=== PATIENT | female | born 1950 | race American Indian/Alaskan Native ===

== ENCOUNTER → 2016-05-19 | Outpatient (CLI) | payer MEDICARE, BC | LOC: MW.CHGS 08:00 | PROVIDERS: ATTEND Surgery | DX: K57.30 Diverticulosis of large intestine without perforation or abscess without bleeding (principal); Z86.010 Personal history of colon polyps; Z12.11 Encounter for screening for malignant neoplasm of colon; Z12.12 Encounter for screening for malignant neoplasm of rectum | CPT/HCPCS: 99204 ==

== ENCOUNTER 2016-06-05 09:45 | Day surgery (SDC) | payer MEDICARE, BC ==
[~2016-06-05 09:45] MED LIST: Lactated Ringers 1,000 ML IV SCH; Midazolam 1 MG/ML 2 ML SDV ONE; Propofol 200 MG/20 ML SDV ONE; fentaNYL 100 MCG/2 ML SDV ONE
--- NOTE | 2016-06-05 10:24 | PCM.PREANE ---
Preanesthetic Assessment - Anesthesia/Transfusion/Family Hx Anesthesia History: Prior Anesthesia Without Reaction Transfusion History: No Prior Transfusion(s) - Review of Systems General: No Symptoms Pulmonary: No Symptoms Cardiovascular: No Symptoms Gastrointestinal: No symptoms Neurological: No Symptoms Other: Reports: None - Physical Assessment NPO Status Date: 06/04/16 O2 Sat by Pulse Oximetry: 97 Respiratory Rate: 16 Vital Signs: Last Vital Signs Temp 36.6 C 06/05/16 09:05 Pulse 91 06/05/16 09:05 Resp 16 06/05/16 09:05 BP 117/40 L 06/05/16 09:05 Pulse Ox 97 06/05/16 09:05 Height: 1.68 m Weight: 79.832 kg ASA Class: 1 Mental Status: Alert & Oriented x3 Airway Class: Mallampati = 2 Dentition: Reports: Normal Dentition ROM/Head Extension: Full Lungs: Clear to auscultation, Normal respiratory effort Cardiovascular: Regular Rate, Regular Rhythm - Allergies Allergies/Adverse Reactions: Allergies Allergy/AdvReac Type Severity Reaction Status Date / Time Cephalosporins Allergy Cannot Verified 06/02/16 08:41 Remember gluten Allergy weakness/he Verified 06/02/16 08:41 adache morphine Allergy Hyperactivi Verified 06/02/16 08:41 ty Sulfa (Sulfonamide Allergy Rash Verified 06/02/16 08:41 Antibiotics) scents Allergy Shortness Uncoded 06/02/16 08:41 of Breath - Anesthesia Plan Pre-Op Medication Ordered: None - Acknowledgements Anesthesia Type Planned: MAC Pt an Appropriate Candidate for the Planned Anesthesia: Yes Alternatives and Risks of Anesthesia Discussed w Pt/Guardian: Yes Pt/Guardian Understands and Agrees with Anesthesia Plan: Yes PreAnesthesia Questionnaire HEENT History: Reports: Allergic rhinitis Gastrointestinal History: Reports: Colon polyp, Diverticulosis Genitourinary History: Reports: 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: Musculoskeletal History: Reports: Arthritis, Back pain, chronic Other Musculoskeletal History: chronic rt knee pain - Past Surgical History Head Surgeries/Procedures: Reports: None GI Surgical History: Reports: Colon, Colonoscopy, Colostomy, Other (see below) Other GI Surgeries/Procedures: hx colonoscopy with polyp removal, colostomy for ruptured diverticulitis, and colostomy closure Female Surgical History: Reports: Breast biopsy, Cervical cryotherapy, Dilitation & evacuation, Hysterectomy, Salpingo-oophorectomy Other Female Surgeries/Procedures: hx D&C, laser ablation of cervix, total abd hysterectomy, and breast bx - SUBSTANCE USE Smoking Status *Q: Never Smoker Recreational Drug Use History: No - HOME MEDS Home Medications: Home Meds Biest/Progesterone 2 mg SL DAILY 06/02/16 [History] Cetirizine HCl [Allergy] 10 mg PO DAILY PRN 06/02/16 [History] Fluticasone Propionate [Flonase Allergy Relief] 1 spray NASBOTH DAILY 06/02/16 [ History] Meloxicam 15 mg PO ASDIRECTED PRN 06/02/16 [History] Montelukast Sodium [Singulair] 10 mg PO DAILY 06/02/16 [History] Multivitamin [Multivitamins] 1 tab PO DAILY 06/02/16 [History] Polyethylene Glycol 3350 [MiraLAX] 1 dose PO ASDIRECTED PRN 06/02/16 [History] - CURRENT (IN HOUSE) MEDS Current Meds: Current Medications Lactated Ringer's (Ringers, Lactated) 1,000 mls @ 125 mls/hr IV ASDIRECTED PAULA Discontinued Medications Fentanyl (Sublimaze) Confirm Administered Dose 100 mcg .ROUTE .STK-MED ONE Stop: 06/05/16 07:28 Midazolam HCl (Versed 1 Mg/Ml) Confirm Administered Dose 2 mg .ROUTE .STK-MED ONE Stop: 06/05/16 07:27 Propofol (Diprivan 20 Ml) Confirm Administered Dose 200 mg .ROUTE .STK-MED ONE Stop: 06/05/16 07:27 Preanesthetic Assessment - ANESTHESIA/TRANSFUSION/FAMILY HX Family History of Anesthesia Reaction: No - PHYSICAL ASSESSMENT O2 Sat by Pulse Oximetry: 97 RR: 16 Vital Signs: Last Vital Signs Temp 36.6 C 06/05/16 09:05 Pulse 91 06/05/16 09:05 Resp 16 06/05/16 09:05 BP 117/40 L 06/05/16 09:05 Pulse Ox 97 06/05/16 09:05 Height: 1.68 m Weight: 79.832 kg - ALLERGIES Allergies/Adverse Reactions: Allergies Allergy/AdvReac Type Severity Reaction Status Date / Time Cephalosporins Allergy Cannot Verified 06/02/16 08:41 Remember gluten Allergy weakness/he Verified 06/02/16 08:41 adache morphine Allergy Hyperactivi Verified 06/02/16 08:41 ty Sulfa (Sulfonamide Allergy Rash Verified 06/02/16 08:41 Antibiotics) scents Allergy Shortness Uncoded 06/02/16 08:41 of Breath
[2016-06-05] MEDS ORDERED: Lactated Ringers 1,000 ML IV SCH (11:30)
--- NOTE | 2016-06-05 11:31 | PCM.OPNOTE ---
- General Post-Op/Procedure Note Date of Surgery/Procedure: 06/05/16 Operative Procedure(s): Colonoscopy Pre Op Diagnosis: Personal history of colon polyps. History of ruptured diverticulitis, status post resection. Post-Op Diagnosis: Pancolonic diverticulosis Anesthesia Technique: MAC (ASA II) Primary Surgeon: Ge Vyas Condition: Good Free Text/Narrative:: Dictation [id number]
[2016-06-05 11:50] VITALS: BP 128/81
--- NOTE | 2016-06-05 12:16 | PCM48HPAN ---
Post Anesthesia Note - EVALUATION WITHIN 48HRS OF ANESTHETIC Vital Signs in Normal Range: Yes Patient Participated in Evaluation: Yes Respiratory Function Stable: Yes Airway Patent: Yes Cardiovascular Function Stable: Yes Hydration Status Stable: Yes Pain Control Satisfactory: Yes Nausea and Vomiting Control Satisfactory: Yes Mental Status Recovered: Yes
--- NOTE | 2016-06-05 12:16 | PCM.POSTAN ---
POST ANESTHESIA ASSESSMENT - MENTAL STATUS Mental Status: alert, oriented - RESPIRATORY Respiratory Status: respiratory rate WNL, airway patent - CARDIOVASCULAR CV Status: pulse rate WNL, blood pressure stable - GASTROINTESTINAL GI Status: no symptoms - POST OP HYDRATION Hydration Status: adequate & stable
--- NOTE | 2016-06-08 07:54 | OR ---
SURGEON: Ge Vyas M.D. DATE OF PROCEDURE: 06/05/2016 OPERATION PERFORMED: Colonoscopy. ANESTHESIA: MAC. ASA CLASSIFICATION: II. PREOPERATIVE DIAGNOSES: 1. Personal history of colon polyps. 2. History of ruptured diverticulitis status post resection. POSTOPERATIVE DIAGNOSIS: Pancolonic diverticulosis. DESCRIPTION OF PROCEDURE: The patient was taken to the endoscopy room and positioned on the endoscopy table in the left lateral decubitus position. Time-out was called for appropriate identification of the patient and procedure. Monitored anesthesia care was provided. The colonoscope was inserted into the rectum and advanced without difficulty to the cecum, where the colonoscope was retroflexed to visualize the ascending colon from below. The colonoscope was then straightened and slowly withdrawn. The cecum, ascending colon, hepatic flexure, transverse colon, splenic flexure, descending colon, sigmoid colon, and rectum were very well visualized. No tumors or polyps were seen. There was no evidence of inflammatory bowel disease. Pancolonic diverticulosis was noted. The colonoscope was then withdrawn to the rectum and retroflexed to visualize the anal orifice from above. No tumors, polyps, or acute hemorrhoidal changes were noted. The colonoscope was then straightened, the rectum aspirated, and the colonoscope was removed. The patient tolerated the procedure well and was taken to recovery room in stable condition. PAVEL DEVI /[id number]
== END 2016-06-05 12:25 | disposition home or self-care (01) ==
LOC: MW.SDS 09:45
PROVIDERS: ATTEND Surgery
PROC: 0DJD8ZZ Inspection of Lower Intestinal Tract, Via Natural or Artificial Opening Endoscopic (ICD-10-PCS; principal; 2016-06-05)
DX: Z12.11 Encounter for screening for malignant neoplasm of colon (principal); K57.30 Diverticulosis of large intestine without perforation or abscess without bleeding; Z86.010 Personal history of colon polyps; J30.9 Allergic rhinitis, unspecified
CPT/HCPCS: G0105; J2250; J3010; J7120; J2704

== ENCOUNTER → 2016-07-10 | Outpatient (CLI) | payer MEDICARE, BC | LOC: MW.CHFP 08:00 | PROVIDERS: ATTEND Physician Assistant | DX: M70.62 Trochanteric bursitis, left hip (principal) | CPT/HCPCS: G0463 ==

== ENCOUNTER → 2016-07-17 | Outpatient (CLI) | payer MEDICARE, BC ==
--- NOTE | 2016-07-17 20:26 | CR ---
EXAM DATE: 07/17/16 PATIENT'S AGE: 66 Patient: WILLY MEADOWS Facility: [place], [place] Site . Site : 1950 Study: XRay Hip Left [id number]/12/2017 10:25:17 AM Ordering Physician: To Arroyo Final Report: HISTORY: Trochanteric bursitis. Technique: Two views of the left hip. Comparison: No prior. Findings: No fracture or dislocation. No significant hip joint space narrowing. Mild degenerative changes of the pubic symphysis. No lytic or sclerotic bone lesion seen. Impression: 1. No fracture or dislocation. 2. No hip joint space narrowing. Dictated by Franko Espinal MD @ Jul 17 2016 12:37PM (Electronic Signature) Report Signed by Proxy. LAN
== END ==
LOC: MW.CHFP 08:49
PROVIDERS: ATTEND Physician Assistant
DX: M70.62 Trochanteric bursitis, left hip (principal)
CPT/HCPCS: 73502-26-LT; 73502-LT; G0463

== ENCOUNTER 2018-05-30 09:57 | Inpatient (IN) | payer MEDICARE, BC ==
[~2018-05-30 09:57] MED LIST changes: +Clindamycin Phosphate in D5W 600 MG in Premix Bag 1 BAG IV SCH; +Famotidine 20 MG/2 ML SDV IVPUSH SCH; +Ketorolac 15 MG/ML SDV IVPUSH SCH; -Lactated Ringers 1,000 ML IV SCH; -Propofol 200 MG/20 ML SDV ONE; +Ropivacaine 49.25 ML, Ketorolac 30 MG, EPINEPHrine 0.5 MG, cloNIDine 80 MCG in Sodium C... INJECT SCH; +Scopolamine 1.5 MG Transdermal Patch TRDERM SCH; +Tranexamic Acid 2,000 MG in Sodium Chloride 0.9% 100 ML IV SCH
[2018-05-30] MEDS ORDERED: EPINEPHrine 1 MG/ML SDV ONE (10:28)
[2018-05-30] MEDS: Lactated Ringers 1,000 ML IV SCH (10:40)
[2018-05-30] MEDS: Acetaminophen 1,000 MG in Premix Bag 1 BAG IV SCH ×5 (10:45→21:05)
--- NOTE | 2018-05-30 10:45 | PCM.PREANE ---
Preanesthetic Assessment - Anesthesia/Transfusion/Family Hx Anesthesia History: Prior Anesthesia Without Reaction Family History of Anesthesia Reaction: No Transfusion History: No Prior Transfusion(s) Intubation History: Unknown - Review of Systems General: No Symptoms Pulmonary: No Symptoms Cardiovascular: No Symptoms Gastrointestinal: No Symptoms Neurological: No Symptoms Other: Reports: None - Physical Assessment Height: 1.68 m Weight: 79.379 kg ASA Class: 2 Mental Status: Alert & Oriented x3 Airway Class: Mallampati = 2 Dentition: Reports: Normal Dentition Thyro-Mental Finger Breadths: 3 Mouth Opening Finger Breadths: 2 ROM/Head Extension: Full Lungs: Clear to Auscultation, Normal Respiratory Effort Cardiovascular: Regular Rate, Regular Rhythm - Allergies Allergies/Adverse Reactions: Allergies Allergy/AdvReac Type Severity Reaction Status Date / Time aspirin Allergy Nausea and Verified 05/26/18 17:06 Vomiting blueberry Allergy Nausea and Verified 05/26/18 17:06 Vomiting Cephalosporins Allergy Rash Verified 05/26/18 17:06 gluten Allergy Arrhythmias Verified 05/26/18 17:06 morphine Allergy Agitation Verified 05/26/18 17:06 soy Allergy Nausea and Verified 05/26/18 17:06 Vomiting Sulfa (Sulfonamide Allergy Rash Verified 05/26/18 17:06 Antibiotics) cantaloupe Allergy Nausea and Uncoded 05/26/18 17:06 Vomiting scents Allergy Shortness Uncoded 05/26/18 17:06 of Breath - Blood Blood Available: No - Anesthesia Plan Pre-Op Medication Ordered: None - Acknowledgements Anesthesia Type Planned: Spinal (general anesthesia back-up) Pt an Appropriate Candidate for the Planned Anesthesia: Yes Alternatives and Risks of Anesthesia Discussed w Pt/Guardian: Yes Pt/Guardian Understands and Agrees with Anesthesia Plan: Yes PreAnesthesia Questionnaire HEENT History: Reports: Allergic Rhinitis Cardiovascular History: Reports: High Cholesterol (mildly elevated - no medications) Gastrointestinal History: Reports: Colon Polyp, Diverticulosis Genitourinary History: Reports: 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: Musculoskeletal History: Reports: Back Pain, Chronic (now ok), Osteoarthritis Other Musculoskeletal History: chronic rt knee pain - Past Surgical History GI Surgical History: Reports: Colon, Colonoscopy, Colostomy, Other (See Below) Other GI Surgeries/Procedures: hx colonoscopy with polyp removal, colostomy for ruptured diverticulitis, and colostomy closure Female Surgical History: Reports: Breast Biopsy, Cervical Cryotherapy, Dilitation & Evacuation, Hysterectomy, Salpingo-Oophorectomy Other Female Surgeries/Procedures: hx D&C, laser ablation of cervix, total abd hysterectomy, and breast bx, rectocele rapair - SUBSTANCE USE Smoking Status *Q: Never Smoker Recreational Drug Use History: No - HOME MEDS Home Medications: Home Meds Fluticasone Propionate [Flonase Allergy Relief] 1 spray NASBOTH BID 06/02/16 [ History] Meloxicam 15 mg PO ASDIRECTED PRN 06/02/16 [History] Montelukast Sodium [Singulair] 10 mg PO QPM 06/02/16 [History] Allerfex 10 mg PO QAM 05/26/18 [History] Estradiol 1 mg PO QPM 05/26/18 [History] Vitamin B Complex 1 cap PO DAILY 05/26/18 [History] - CURRENT (IN HOUSE) MEDS Current Meds: Current Medications Famotidine (Pepcid) 40 mg IVPUSH ONARRIVE [facility] Last Admin: 05/30/18 09:15 Dose: 40 mg Acetaminophen 1,000 mg/ Premix 100 mls @ 400 mls/hr IV ONARRIVE PAULA Last Admin: 05/30/18 09:15 Dose: 400 mls/hr Clindamycin Phosphate 600 mg/ (Premix) 50 mls @ 100 mls/hr IV ONCALL [facility] Last Admin: 05/30/18 09:14 Dose: 100 mls/hr Ropivacaine 49.25 ml/Ketorolac Tromethamine 30 mg/Epinephrine HCl 0.5 mg/ Clonidine HCl 80 mcg/ Sodium Chloride 75 mls @ 50 mls/sec INJECT ASDIRECTED PAULA Lactated Ringer's (Ringers, Lactated) 1,000 mls @ 100 mls/hr IV ASDIRECTED PAULA Last Admin: 05/30/18 09:15 Dose: 100 mls/hr Tranexamic Acid 2,000 mg/ (Sodium Chloride) 120 mls @ 600 mls/hr IV ASDIRECTED PAULA Ketorolac Tromethamine (Toradol) 15 mg IVPUSH ONARRIVE [facility] Last Admin: 05/30/18 09:16 Dose: 15 mg Scopolamine (Transderm-Scop) 1.5 mg TRDERM ONARRIVE [facility] Last Admin: 05/30/18 09:16 Dose: 1.5 mg Discontinued Medications Epinephrine HCl (Adrenalin) Confirm Administered Dose 1 mg .ROUTE .STK-MED ONE Stop: 05/30/18 10:29 Fentanyl (Sublimaze) Confirm Administered Dose 100 mcg .ROUTE .STK-MED ONE Stop: 05/30/18 08:57 Midazolam HCl (Versed 1 Mg/Ml) Confirm Administered Dose 4 mg .ROUTE .STK-MED ONE Stop: 05/30/18 08:57 Tranexamic Acid (Cyklokapron) Confirm Administered Dose 2,000 mg .ROUTE .STK- MED ONE Stop: 05/30/18 07:55
[2018-05-30] MEDS ORDERED: Midazolam 1 MG/ML 2 ML SDV ONE (11:43)
[2018-05-30] MEDS ORDERED: Ondansetron 4 MG/2 ML SDV ONE (12:02)
[2018-05-30] MEDS ORDERED: Propofol 200 MG/20 ML SDV ONE ×2 (12:15→12:16)
[2018-05-30] MEDS ORDERED: Docusate Sodium 100 MG Cap PO PRN (12:46)
[2018-05-30] MEDS ORDERED: Bisacodyl 10 MG Supp RECTAL PRN (12:46)
[2018-05-30] MEDS ORDERED: Aluminum Hydroxide/Magnesium Hydroxide/Simethicone Susp 30 ML Cup PO PRN (12:46)
[2018-05-30] MEDS ORDERED: diphenhydrAMINE 25 MG Cap PO PRN (12:46)
[2018-05-30] MEDS ORDERED: Ondansetron 4 MG/2 ML SDV IVPUSH PRN (12:46)
[2018-05-30] MEDS ORDERED: Sodium Chloride 0.9% 2.5 ML Syringe FLUSH PRN (12:49)
[2018-05-30] MEDS ORDERED: Phenylephrine/Normal Saline 100 MCG/ML 10 ML Syringe ONE (12:49)
[2018-05-30] MEDS ORDERED: Sodium Chloride 0.9% 10 ML Syringe FLUSH PRN (12:49)
[2018-05-30] MEDS ORDERED: HYDROmorphone 2 MG/ML Syringe IVPUSH PRN (12:50)
--- NOTE | 2018-05-30 13:09 | PCM.OPNOTE ---
- General Post-Op/Procedure Note Date of Surgery/Procedure: 05/30/18 Operative Procedure(s): R TKA Post-Op Diagnosis: DJD R knee Anesthesia Technique: Moderate Sedation, Spinal Primary Surgeon: Yeimi Yu Equipment Detailer: Marline Larsno Equipment Detailer: Yanet Garcia EBL in mLs: 50 Condition: Good Free Text/Narrative:: #[id number] tt=42 min Intake & Output 05/29/18 05/30/18 05/30/18 22:59 06:59 14:59 Output Total 100 Balance -100
[2018-05-30] MEDS: Ketorolac 30 MG/ML SDV IVPUSH SCH ×2 (14:28→19:25)
--- NOTE | 2018-05-30 17:05 | CR ---
EXAMINATION: Right knee HISTORY: Arthroplasty COMPARISON: 11/05/2016 TECHNIQUE: 2 views FINDINGS/IMPRESSION: Right total knee hardware is demonstrated in good position and alignment. Operative soft tissue changes are noted.
[2018-05-30] MEDS: oxyCODONE 5 MG Tab PO PRN ×2 (17:07→21:04)
[2018-05-30] MEDS: Clindamycin Phosphate in D5W 600 MG in Premix Bag 50 BAG IV SCH ×2 (18:58)
[2018-05-30] MEDS: Montelukast 10 MG Tab PO SCH (19:01)
--- NOTE | 2018-05-30 19:43 | OR ---
SURGEON: Yeimi Yu MD DATE OF PROCEDURE: 05/30/2018 PREOPERATIVE DIAGNOSIS: Degenerative joint disease, right knee, tricompartmental. POSTOPERATIVE DIAGNOSIS: Degenerative joint disease, right knee, tricompartmental. PROCEDURE: Right total knee arthroplasty. PRIMARY SURGEON: Yeimi Yu MD. DRAW BENCH OPERATOR: Marline Larson PA-C, and CAMRON French. ANESTHESIA: Spinal with sedation. ESTIMATED BLOOD LOSS: 50 mL. TOURNIQUET TIME: 42 minutes. COMPLICATIONS: None. DVT PROPHYLAXIS: PAS boot and THIERRY hose to the nonoperative leg. IMPLANTS USED: Soco Persona femoral component size 8 standard (LPS), tibial component size E, 10 mm all-polyethylene articular surface, and 35 mm all-polyethylene patella. INTRAOPERATIVE FINDINGS: Showed severe tricompartmental degenerative changes with grade 4 chondromalacia in all compartments. No significant synovitis was found. BRIEF HISTORY: Claritza is a 67-year-old female who has had complaint of progressive right knee pain. She had failed conservative treatment. Due to her lack of response to conservative treatment, I did recommend surgical intervention. The risks and goals of procedure were discussed with the patient and were documented preoperatively. She agreed to proceed. DESCRIPTION OF PROCEDURE: The patient was properly identified and brought to the operating room. The patient was then transferred from the operating room cart and placed on the operating table in a supine position. Anesthesia was administered by the anesthesia staff. After adequate anesthesia was obtained, a well-padded tourniquet was applied to the surgical lower extremity. Casillas catheter was placed. The lower extremity was then prepped in standard fashion using ChloraPrep solution. It was then sterilely draped. A time-out was performed to ensure correct site and procedure. Preoperative antibiotics were given along with one gram tranexamic acid IV. The surgical site had been marked preoperatively. An Esmarch was used to exsanguinate the right lower extremity and the tourniquet was inflated. An incision was made over the anterior aspect of the knee. The subcutaneous tissues were dissected down to the level of the fascia. A medial parapatellar approach to the knee was made. A portion of the infrapatellar fat pad was then excised. The distal femur was then exposed. The step reamer was used to gain access to the intramedullary canal. This was placed in 6 degrees of valgus. Pins were placed. The distal femoral cutting block was placed and the distal femoral cut was made. Instrumentation was then removed. The femur was then sized. Both Whitesides' line and the epicondylar axis were then marked with electrocautery. The 4-in-1 cutting block was placed. This was placed in a slightly externally rotated position, which corresponded well with the previously drawn lines. The cutting guide was then pinned into position. An [place]ago wing guide was used to check the depth of resection of our anterior condylar cut and it was felt that no notching would occur. The anterior condylar cut was then made followed by the posterior condylar cut. Both the posterior chamfer and anterior chamfer cuts were then made. The cutting block was then removed along with the excess bony remnants. We then turned our attention to the tibia. The anterior cruciate ligament and posterior cruciate ligament were released and a posterior cruciate ligament retractor was placed to allow the tibia to be pulled anteriorly. The tibial extra-medullary guide was then positioned. We chose to take approximately 2 mm off of the lowest side. The proximal tibia cutting guide was then placed and screwed into position. The proximal tibial resection was then made with care being taken to protect the patellar tendon. The bony resection was then removed. The remainder of the medial and lateral meniscus were then excised. Care was taken to protect the popliteus tendon. The tibia was then sized to the appropriate size. The distal femur was then elevated. The posterior capsule was stripped off the distal femur both medially and laterally. The posterior capsule along with the medial and lateral gutters were then injected with a standard mixture consisting of clonidine, epinephrine, Toradol, and opivacaine, unless any allergies were found preoperatively. The femoral component was then placed onto the distal femur in a slightly lateral position. This fit the femur well. A box cut was then made without difficulty. This was then removed. The tibial trial along with the polyethylene liner was then placed. The knee came easily into full extension and was stable to varus and valgus stressing both in full extension and flexion. Any additional releases were performed at this time. We then returned our attention to the patella. The patella was everted and towel clamps were used to hold the patella in position. It was resected to a 15 millimeter thickness. It was then sized to the appropriate size. It was prepared in the usual fashion after placing the predetermined size clamps. This was placed in a slightly superior and medial position. The clamp was then removed. The patellar trial button was placed. The knee was taken through a range of motion using the no-touch technique. The patella tracked centrally. A drop summer was then placed to check alignment. All instruments were then removed from the knee. The tibial sizer was then placed on the tibia. The tibia was prepared in the usual fashion using the reamer and broach. This was then removed. All bony surfaces were copiously irrigated with Pulsavac solution. They were then suctioned dry. Cement was prepared on the back table in the usual manner. Antibiotic impregnated cement was used if the patient was diabetic. Once it was prepared, the bone ends were again suctioned dry. The tibia was cemented into place first. This was malleted into position. Excess cement was then cleared. The femur was then placed in a similar manner. We placed the polyethylene trial into place and the knee was brought into full extension. An axial load was placed while keeping the knee in full extension. The patella button was also cemented into position and the clamp was used to hold this in place as the cement was allowed to cure. The wound was copiously irrigated with saline using a pulsavac web user experience strategist. Following this, 1 gram of tranexamic acid was applied topically to the wound during the curing process. After we had adequate curing of the cement, the knee was again taken through a range of motion. The size of the polyethylene was then determined. The polyethylene trial was then removed. The tibial tray was suctioned to make sure there was no remaining soft tissue or cement. Excess cement was cleared from around the edges of the prosthesis as well. The tourniquet was then deflated. We were able to observe for any excess bleeding and none was noted. Electrocautery was used to maintain hemostasis. An additional gram of tranexamic acid was given IV. The retractors were again placed and the predetermined polyethylene was then placed. This was locked into position without difficulty. The knee was again taken through a range of motion with no change from the prior exam. The fascial layer was closed with Number One Vicryl. The subcutaneous tissues were closed with 2-0 Vicryl. The skin was closed with funmilayo. Xeroform gauze was placed over the wound and a bulky dressing was applied. The patient was then awakened from anesthesia and transferred back to the operating room cart. They were brought to the recovery room in stable condition. All needle and sponge counts were correct. FERMÍN / SHANDRA /[id number]
[2018-05-30] MEDS: Fluticasone Propionate Nasal Spray 16 GM Bottle NASBOTH SCH (20:56)
[2018-05-31] MEDS: Ketorolac 30 MG/ML SDV IVPUSH SCH (00:48)
[2018-05-31] MEDS: Lactated Ringers 1,000 ML IV SCH (00:58)
[2018-05-31] MEDS: oxyCODONE 5 MG Tab PO PRN ×2 (01:00→05:04)
[2018-05-31] MEDS: Clindamycin Phosphate in D5W 600 MG in Premix Bag 50 BAG IV SCH ×2 (02:46)
[2018-05-31] MEDS: Acetaminophen 1,000 MG in Premix Bag 1 BAG IV SCH (03:17)
--- NOTE | 2018-05-31 07:05 | PCM48HPAN ---
Post Anesthesia Note - EVALUATION WITHIN 48HRS OF ANESTHETIC Vital Signs in Normal Range: Yes Patient Participated in Evaluation: Yes Respiratory Function Stable: Yes Airway Patent: Yes Cardiovascular Function Stable: Yes Hydration Status Stable: Yes Pain Control Satisfactory: Yes Nausea and Vomiting Control Satisfactory: Yes Mental Status Recovered: Yes Resp Rate: 16
[2018-05-31] MEDS: Fluticasone Propionate Nasal Spray 16 GM Bottle NASBOTH SCH ×4 (09:00→20:29)
[2018-05-31] MEDS: Polyethylene Glycol 3350 Powder 17 GM Packet PO SCH (09:35)
[2018-05-31] MEDS: Celecoxib 100 MG Cap PO SCH ×2 (09:36→20:18)
[2018-05-31] MEDS: Apixaban 2.5 MG Tab PO SCH ×2 (09:37→20:18)
[2018-05-31] MEDS: Famotidine 20 MG Tab PO SCH (09:38)
[2018-05-31] MEDS: Acetaminophen/oxyCODONE 325-5 MG Tab PO PRN ×4 (09:39→22:21)
--- NOTE | 2018-05-31 09:48 | PCM.SURGPN ---
<Marline Larson R - Last Filed: 05/31/18 09:45> - General Info Date of Service: 05/31/18 Date of Surgery/Procedure: 05/30/18 POD#: 1 Functional Status: Reports: Pain Controlled, Tolerating Diet, Ambulating - Review of Systems General: Reports: No Symptoms Pulmonary: Reports: No Symptoms Cardiovascular: Reports: No Symptoms Gastrointestinal: Reports: No Symptoms Systems Review Comment:: pt resting comfortably in bed pain controlled tolerating PO intake well able to clear toes during ambulation no specific concerns today - Patient Data Vitals - Most Recent: Last Vital Signs Temp 97.9 F 05/31/18 07:10 Pulse 75 05/31/18 07:10 Resp 16 05/31/18 07:10 BP 124/59 L 05/31/18 07:10 Pulse Ox 95 05/31/18 07:10 Weight - Most Recent: 79.379 kg I&O - Last 24 Hours: Intake & Output 05/30/18 05/31/18 05/31/18 22:59 06:59 14:59 Intake Total 100 2448 Output Total 1475 Balance 100 973 Lab Results Last 24 Hrs: Laboratory Results - last 24 hr 05/30/18 05/31/18 Range/Units 11:11 06:12 Hgb 10.9 L (12.0-16.0) g/dL Hct 33.3 L (36.0-46.0) % Blood Type A POSITIVE Antibody Screen NEGATIVE Med Orders - Current: Current Medications Al Hydroxide/Mg Hydroxide (Mag-Al Plus) 30 ml PO Q4H PRN PRN Reason: Indigestion Apixaban (Eliquis) 2.5 mg PO BID [facility] Last Admin: 05/31/18 09:37 Dose: 2.5 mg Bisacodyl (Dulcolax) 10 mg RECTAL DAILY PRN PRN Reason: Constipation Celecoxib (Celebrex) 200 mg PO BID [facility] Last Admin: 05/31/18 09:36 Dose: 200 mg Diphenhydramine HCl (Benadryl) 25 - 50 mg PO Q6H PRN PRN Reason: Itching Docusate Sodium (Colace) 100 mg PO BID PRN PRN Reason: Constipation Famotidine (Pepcid) 40 mg IVPUSH ONARRIVE [facility] Last Admin: 05/30/18 10:45 Dose: 40 mg Famotidine (Pepcid) 40 mg PO DAILY [facility] Last Admin: 05/31/18 09:38 Dose: 40 mg Fluticasone Propionate (Flonase) 0 gm NASBOTH BID [facility] Last Admin: 05/30/18 20:56 Dose: 1 spray Hydromorphone HCl (Dilaudid) 0.5 - 1 mg IVPUSH Q3H PRN PRN Reason: Pain Acetaminophen 1,000 mg/ Premix 100 mls @ 400 mls/hr IV ONARRIVE [facility] Last Infusion: 05/30/18 16:44 Dose: Infused Clindamycin Phosphate 600 mg/ (Premix) 50 mls @ 100 mls/hr IV ONCALL [facility] Last Admin: 05/30/18 11:00 Dose: 100 mls/hr Ropivacaine 49.25 ml/Ketorolac Tromethamine 30 mg/Epinephrine HCl 0.5 mg/ Clonidine HCl 80 mcg/ Sodium Chloride 75 mls @ 50 mls/sec INJECT ASDIRECTED [facility] Lactated Ringer's (Ringers, Lactated) 1,000 mls @ 100 mls/hr IV ASDIRECTED [facility] Last Admin: 05/31/18 00:58 Dose: 100 mls/hr Tranexamic Acid 2,000 mg/ (Sodium Chloride) 120 mls @ 600 mls/hr IV ASDIRECTED [facility] Ketorolac Tromethamine (Toradol) 15 mg IVPUSH ONARRIVE [facility] Last Admin: 05/30/18 10:45 Dose: 15 mg Montelukast Sodium (Singulair) 10 mg PO QPM [facility] Last Admin: 05/30/18 19:01 Dose: 10 mg Ondansetron HCl (Zofran) 4 mg IVPUSH Q6H PRN PRN Reason: Nausea/Vomiting Last Admin: 05/31/18 02:42 Dose: 4 mg Oxycodone/Acetaminophen (Percocet 325-5 Mg) 1 - 2 tab PO Q4H PRN PRN Reason: Pain Last Admin: 05/31/18 09:39 Dose: 2 tab Estradiol 1 Mg 1 each PO QPM [facility] Last Admin: 05/30/18 19:09 Dose: Not Given Allerfex 10 Mg) 1 each PO QAM [facility] Polyethylene Glycol (Miralax) 17 gm PO DAILY [facility] Last Admin: 05/31/18 09:35 Dose: 17 gm Scopolamine (Transderm-Scop) 1.5 mg TRDERM ONARRIVE [facility] Last Admin: 05/30/18 10:45 Dose: 1.5 mg Sodium Chloride (Saline Flush) 10 ml FLUSH ASDIRECTED PRN PRN Reason: Keep Vein Open Sodium Chloride (Saline Flush) 2.5 ml FLUSH ASDIRECTED PRN PRN Reason: Keep Vein Open Discontinued Medications Epinephrine HCl (Adrenalin) Confirm Administered Dose 1 mg .ROUTE .STK-MED ONE Stop: 05/30/18 10:29 Fentanyl (Sublimaze) Confirm Administered Dose 100 mcg .ROUTE .STK-MED ONE Stop: 05/30/18 08:57 Acetaminophen 1,000 mg/ Premix 100 mls @ 400 mls/hr IV Q6H [facility] Stop: 05/31/18 04:14 Last Admin: 05/31/18 03:17 Dose: 400 mls/hr Clindamycin Phosphate 600 mg/ (Premix) 50 mls @ 100 mls/hr IV Q8H [facility] Stop: 05/31/18 03:59 Last Admin: 05/31/18 02:46 Dose: 100 mls/hr Ketorolac Tromethamine (Toradol) 30 mg IVPUSH Q6H [facility] Stop: 05/31/18 05:00 Last Admin: 05/31/18 00:48 Dose: 30 mg Midazolam HCl (Versed 1 Mg/Ml) Confirm Administered Dose 4 mg .ROUTE .STK-MED ONE Stop: 05/30/18 08:57 Midazolam HCl (Versed 1 Mg/Ml) Confirm Administered Dose 2 mg .ROUTE .STK-MED ONE Stop: 05/30/18 11:44 Ondansetron HCl (Zofran) Confirm Administered Dose 4 mg .ROUTE .STK-MED ONE Stop: 05/30/18 12:03 Oxycodone HCl (Oxycodone) 5 - 10 mg PO Q4H PRN PRN Reason: Pain Stop: 05/31/18 06:00 Last Admin: 05/31/18 05:04 Dose: 5 mg Phenylephrine HCl (Phenylephrine In Ns 100 Mcg/Ml) Confirm Administered Dose 1 mg .ROUTE .STK-MED ONE Stop: 05/30/18 12:50 Propofol (Diprivan 20 Ml) Confirm Administered Dose 200 mg .ROUTE .STK-MED ONE Stop: 05/30/18 12:16 Propofol (Diprivan 20 Ml) Confirm Administered Dose 200 mg .ROUTE .STK-MED ONE Stop: 05/30/18 12:17 Tranexamic Acid (Cyklokapron) Confirm Administered Dose 2,000 mg .ROUTE .STK- MED ONE Stop: 05/30/18 07:55 - Exam Wound/Incisions: Dressing Dry and Intact General: Alert, Oriented Cardiovascular: Regular Rate, Regular Rhythm Extremities: Other (exam RLE - gastroc 5/5, at/ehl 0/5, able to kalpana against resistance, dp 2+, sensation intact distally) Physical Findings Comment:: vss, afeb uo 1500+mL hgb 10.9 - Problem List Review Problem List Initiated/Reviewed/Updated: Yes - My Orders Last 24 Hours: Active Orders 24 hr Category Date Time Status Communication Order [RC] PRN Care 05/30/18 12:46 Active Communication Order [RC] PRN Care 05/30/18 12:46 Active Neurovascular Check [RC] Q2HR Care 05/30/18 12:46 Active Notify Provider Vital Signs [RC] ASDIRECTED Care 05/30/18 12:46 Active RT Incentive Spirometry [RC] Q1HWA Care 05/30/18 12:46 Active Urinary Catheter Removal [RC] ASDIRECTED Care 05/31/18 06:00 Active Wound Care [RC] DAILY Care 05/30/18 12:46 Active PT Evaluation and Treatment [CONS] Routine Cons 05/30/18 12:46 Active HEMOGLOBIN/HEMATOCRIT,HH [HEME] DAILY Lab 06/01/18 06:00 Ordered Acetaminophen/oxyCODONE [Percocet 325-5 MG] Med 05/31/18 06:00 Active 1 - 2 tab PO Q4H PRN Alum Hydrox/Mag Hydrox/Simeth [Mag-Al Plus] Med 05/30/18 12:46 Active 30 ml PO Q4H PRN Apixaban [Eliquis] Med 05/31/18 09:00 Active 2.5 mg PO BID Bisacodyl [Dulcolax] Med 05/30/18 12:46 Active 10 mg RECTAL DAILY PRN Celecoxib [CeleBREX] Med 05/31/18 09:00 Active 200 mg PO BID Docusate Sodium [Colace] Med 05/30/18 12:46 Active 100 mg PO BID PRN Famotidine [Pepcid] Med 05/31/18 09:00 Active 40 mg PO DAILY Fluticasone Propionate [Flonase] Med 05/30/18 21:00 Active 0 gm NASBOTH BID HYDROmorphone [Dilaudid] Med 05/30/18 12:50 Active 0.5 - 1 mg IVPUSH Q3H PRN Montelukast [Singulair] Med 05/30/18 18:00 Active 10 mg PO QPM Ondansetron [Zofran] Med 05/30/18 12:46 Active 4 mg IVPUSH Q6H PRN Patient's Own Medication [Ptom] Med 05/31/18 09:00 Active 1 each PO QAM Patient's Own Medication [Ptom] Med 05/30/18 18:00 Active 1 each PO QPM Polyethylene Glycol 3350 [MiraLAX] Med 05/31/18 09:00 Active 17 gm PO DAILY Sodium Chloride 0.9% [Saline Flush] Med 05/30/18 12:49 Active 10 ml FLUSH ASDIRECTED PRN Sodium Chloride 0.9% [Saline Flush] Med 05/30/18 12:49 Active 2.5 ml FLUSH ASDIRECTED PRN diphenhydrAMINE [Benadryl] Med 05/30/18 12:46 Active 25 - 50 mg PO Q6H PRN Convert IV to Saline Lock [OM.PC] Routine Oth 05/31/18 06:00 Ordered Ice Therapy [OM.PC] Routine Oth 05/30/18 12:46 Ordered Medication Orders Al Hydroxide/Mg Hydroxide (Mag-Al Plus) 30 ml PO Q4H PRN PRN Reason: Indigestion Apixaban (Eliquis) 2.5 mg PO BID [facility] Last Admin: 05/31/18 09:37 Dose: 2.5 mg Bisacodyl (Dulcolax) 10 mg RECTAL DAILY PRN PRN Reason: Constipation Celecoxib (Celebrex) 200 mg PO BID [facility] Last Admin: 05/31/18 09:36 Dose: 200 mg Diphenhydramine HCl (Benadryl) 25 - 50 mg PO Q6H PRN PRN Reason: Itching Docusate Sodium (Colace) 100 mg PO BID PRN PRN Reason: Constipation Famotidine (Pepcid) 40 mg IVPUSH ONARRIVE [facility] Last Admin: 05/30/18 10:45 Dose: 40 mg Famotidine (Pepcid) 40 mg PO DAILY [facility] Last Admin: 05/31/18 09:38 Dose: 40 mg Fluticasone Propionate (Flonase) 0 gm NASBOTH BID [facility] Last Admin: 05/30/18 20:56 Dose: 1 spray Hydromorphone HCl (Dilaudid) 0.5 - 1 mg IVPUSH Q3H PRN PRN Reason: Pain Acetaminophen 1,000 mg/ Premix 100 mls @ 400 mls/hr IV ONARRIVE [facility] Last Infusion: 05/30/18 16:44 Dose: 400 mls/hr Admin: 05/30/18 16:29 Dose: 400 mls/hr Infusion: 05/30/18 11:00 Dose: 400 mls/hr Admin: 05/30/18 10:45 Dose: 400 mls/hr Clindamycin Phosphate 600 mg/ (Premix) 50 mls @ 100 mls/hr IV ONCALL [facility] Last Admin: 05/30/18 11:00 Dose: 100 mls/hr Ropivacaine 49.25 ml/Ketorolac Tromethamine 30 mg/Epinephrine HCl 0.5 mg/ Clonidine HCl 80 mcg/ Sodium Chloride 75 mls @ 50 mls/sec INJECT ASDIRECTED [facility] Lactated Ringer's (Ringers, Lactated) 1,000 mls @ 100 mls/hr IV ASDIRECTED [facility] Last Admin: 05/31/18 00:58 Dose: 100 mls/hr Infusion: 05/30/18 20:40 Dose: 100 mls/hr Admin: 05/30/18 10:40 Dose: 100 mls/hr Tranexamic Acid 2,000 mg/ (Sodium Chloride) 120 mls @ 600 mls/hr IV ASDIRECTED [facility] Ketorolac Tromethamine (Toradol) 15 mg IVPUSH ONARRIVE [facility] Last Admin: 05/30/18 10:45 Dose: 15 mg Montelukast Sodium (Singulair) 10 mg PO QPM [facility] Last Admin: 05/30/18 19:01 Dose: 10 mg Ondansetron HCl (Zofran) 4 mg IVPUSH Q6H PRN PRN Reason: Nausea/Vomiting Last Admin: 05/31/18 02:42 Dose: 4 mg Oxycodone/Acetaminophen (Percocet 325-5 Mg) 1 - 2 tab PO Q4H PRN PRN Reason: Pain Last Admin: 05/31/18 09:39 Dose: 2 tab Estradiol 1 Mg 1 each PO QPM [facility] Last Admin: 05/30/18 19:09 Dose: Allerfex 10 Mg) 1 each PO QAM [facility] Polyethylene Glycol (Miralax) 17 gm PO DAILY [facility] Last Admin: 05/31/18 09:35 Dose: 17 gm Scopolamine (Transderm-Scop) 1.5 mg TRDERM ONARRIVE [facility] Last Admin: 05/30/18 10:45 Dose: 1.5 mg Sodium Chloride (Saline Flush) 10 ml FLUSH ASDIRECTED PRN PRN Reason: Keep Vein Open Sodium Chloride (Saline Flush) 2.5 ml FLUSH ASDIRECTED PRN PRN Reason: Keep Vein Open - Assessment Assessment (Free Text/Narrative):: POD#1 R TKA acute posthemorrhagic anemia R peroneal nn palsy - Plan Plan (Free Text/Narrative):: DC IV fluids - saline lock IV DC shukla DC [employer] - morphine IV prn breakthrough pain DC oxycodone - percocet 5/325 prn available ASA 325mg PO BID as DVT prophylaxis PT today pt has wheeled walker or script has been written anticipate up to 72 hour stay for IV pain medication and continued physical therapy pt will require FWW for safe mobility/stability until increased strength/gait independence s/p TKA - has been safely mobilizing in room with FWW. d/ch medications written will change dressing on POD#2 or prior to discharge <Yeimi Yu R - Last Filed: 05/31/18 18:26> - Patient Data Vitals - Most Recent: Last Vital Signs Temp 98.9 F 05/31/18 16:00 Pulse 78 05/31/18 16:00 Resp 16 05/31/18 16:00 BP 149/69 H 05/31/18 16:00 Pulse Ox 96 05/31/18 16:00 I&O - Last 24 Hours: Intake & Output 05/31/18 05/31/18 05/31/18 06:59 14:59 22:59 Intake Total 2448 660 Output Total 1475 200 Balance 973 460 Lab Results Last 24 Hrs: Laboratory Results - last 24 hr 05/31/18 Range/Units 06:12 Hgb 10.9 L (12.0-16.0) g/dL Hct 33.3 L (36.0-46.0) % Med Orders - Current: Current Medications Al Hydroxide/Mg Hydroxide (Mag-Al Plus) 30 ml PO Q4H PRN PRN Reason: Indigestion Apixaban (Eliquis) 2.5 mg PO BID [facility] Last Admin: 05/31/18 09:37 Dose: 2.5 mg Bisacodyl (Dulcolax) 10 mg RECTAL DAILY PRN PRN Reason: Constipation Celecoxib (Celebrex) 200 mg PO BID [facility] Last Admin: 05/31/18 09:36 Dose: 200 mg Diphenhydramine HCl (Benadryl) 25 - 50 mg PO Q6H PRN PRN Reason: Itching Docusate Sodium (Colace) 100 mg PO BID PRN PRN Reason: Constipation Famotidine (Pepcid) 40 mg IVPUSH ONARRIVE [facility] Last Admin: 05/30/18 10:45 Dose: 40 mg Famotidine (Pepcid) 40 mg PO DAILY [facility] Last Admin: 05/31/18 09:38 Dose: 40 mg Hydromorphone HCl (Dilaudid) 0.5 - 1 mg IVPUSH Q3H PRN PRN Reason: Pain Acetaminophen 1,000 mg/ Premix 100 mls @ 400 mls/hr IV ONARRIVE [facility] Last Infusion: 05/30/18 16:44 Dose: Infused Clindamycin Phosphate 600 mg/ (Premix) 50 mls @ 100 mls/hr IV ONCALL [facility] Last Admin: 05/30/18 11:00 Dose: 100 mls/hr Ropivacaine 49.25 ml/Ketorolac Tromethamine 30 mg/Epinephrine HCl 0.5 mg/ Clonidine HCl 80 mcg/ Sodium Chloride 75 mls @ 50 mls/sec INJECT ASDIRECTED [facility] Lactated Ringer's (Ringers, Lactated) 1,000 mls @ 100 mls/hr IV ASDIRECTED [facility] Last Admin: 05/31/18 00:58 Dose: 100 mls/hr Tranexamic Acid 2,000 mg/ (Sodium Chloride) 120 mls @ 600 mls/hr IV ASDIRECTED [facility] Ketorolac Tromethamine (Toradol) 15 mg IVPUSH ONARRIVE [facility] Last Admin: 05/30/18 10:45 Dose: 15 mg Montelukast Sodium (Singulair) 10 mg PO QPM [facility] Last Admin: 05/31/18 17:56 Dose: 10 mg Ondansetron HCl (Zofran) 4 mg IVPUSH Q6H PRN PRN Reason: Nausea/Vomiting Last Admin: 05/31/18 02:42 Dose: 4 mg Oxycodone/Acetaminophen (Percocet 325-5 Mg) 1 - 2 tab PO Q4H PRN PRN Reason: Pain Last Admin: 05/31/18 17:56 Dose: 2 tab Estradiol 1 Mg 1 each PO QPM [facility] Last Admin: 05/31/18 18:03 Dose: Not Given Allerfex 10 Mg) 1 each PO QAM [facility] Last Admin: 05/31/18 10:08 Dose: Not Given Fluticasone Propionate Nasal [place] 16 Gm Bottle 0 each NASBOTH BID [facility] Last Admin: 05/31/18 09:00 Dose: 1 each Polyethylene Glycol (Miralax) 17 gm PO DAILY [facility] Last Admin: 05/31/18 09:35 Dose: 17 gm Scopolamine (Transderm-Scop) 1.5 mg TRDERM ONARRIVE [facility] Last Admin: 05/30/18 10:45 Dose: 1.5 mg Sodium Chloride (Saline Flush) 10 ml FLUSH ASDIRECTED PRN PRN Reason: Keep Vein Open Sodium Chloride (Saline Flush) 2.5 ml FLUSH ASDIRECTED PRN PRN Reason: Keep Vein Open Discontinued Medications Epinephrine HCl (Adrenalin) Confirm Administered Dose 1 mg .ROUTE .STK-MED ONE Stop: 05/30/18 10:29 Fentanyl (Sublimaze) Confirm Administered Dose 100 mcg .ROUTE .STK-MED ONE Stop: 05/30/18 08:57 Fluticasone Propionate (Flonase) 0 gm NASBOTH BID [facility] Last Admin: 05/31/18 10:22 Dose: Not Given Acetaminophen 1,000 mg/ Premix 100 mls @ 400 mls/hr IV Q6H [facility] Stop: 05/31/18 04:14 Last Admin: 05/31/18 03:17 Dose: 400 mls/hr Clindamycin Phosphate 600 mg/ (Premix) 50 mls @ 100 mls/hr IV Q8H [facility] Stop: 05/31/18 03:59 Last Admin: 05/31/18 02:46 Dose: 100 mls/hr Ketorolac Tromethamine (Toradol) 30 mg IVPUSH Q6H [facility] Stop: 05/31/18 05:00 Last Admin: 05/31/18 00:48 Dose: 30 mg Midazolam HCl (Versed 1 Mg/Ml) Confirm Administered Dose 4 mg .ROUTE .STK-MED ONE Stop: 05/30/18 08:57 Midazolam HCl (Versed 1 Mg/Ml) Confirm Administered Dose 2 mg .ROUTE .STK-MED ONE Stop: 05/30/18 11:44 Ondansetron HCl (Zofran) Confirm Administered Dose 4 mg .ROUTE .STK-MED ONE Stop: 05/30/18 12:03 Oxycodone HCl (Oxycodone) 5 - 10 mg PO Q4H PRN PRN Reason: Pain Stop: 05/31/18 06:00 Last Admin: 05/31/18 05:04 Dose: 5 mg Phenylephrine HCl (Phenylephrine In Ns 100 Mcg/Ml) Confirm Administered Dose 1 mg .ROUTE .STK-MED ONE Stop: 05/30/18 12:50 Propofol (Diprivan 20 Ml) Confirm Administered Dose 200 mg .ROUTE .STK-MED ONE Stop: 05/30/18 12:16 Propofol (Diprivan 20 Ml) Confirm Administered Dose 200 mg .ROUTE .STK-MED ONE Stop: 05/30/18 12:17 Tranexamic Acid (Cyklokapron) Confirm Administered Dose 2,000 mg .ROUTE .STK- MED ONE Stop: 05/30/18 07:55 - My Orders Last 24 Hours: Active Orders 24 hr Category Date Time Status Urinary Catheter Removal [RC] ASDIRECTED Care 05/31/18 06:00 Active HEMOGLOBIN/HEMATOCRIT,HH [HEME] DAILY Lab 06/01/18 06:00 Ordered Acetaminophen/oxyCODONE [Percocet 325-5 MG] Med 05/31/18 06:00 Active 1 - 2 tab PO Q4H PRN Apixaban [Eliquis] Med 05/31/18 09:00 Active 2.5 mg PO BID Celecoxib [CeleBREX] Med 05/31/18 09:00 Active 200 mg PO BID Famotidine [Pepcid] Med 05/31/18 09:00 Active 40 mg PO DAILY Montelukast [Singulair] Med 05/30/18 18:00 Active 10 mg PO QPM Patient's Own Medication [Ptom] Med 05/31/18 11:45 Active 0 each NASBOTH BID Patient's Own Medication [Ptom] Med 05/31/18 09:00 Active 1 each PO QAM Patient's Own Medication [Ptom] Med 05/30/18 18:00 Active 1 each PO QPM Polyethylene Glycol 3350 [MiraLAX] Med 05/31/18 09:00 Active 17 gm PO DAILY traMADol [Ultram] Med 05/31/18 18:24 Ordered 100 mg PO Q6H PRN Convert IV to Saline Lock [OM.PC] Routine Oth 05/31/18 06:00 Ordered Medication Orders Al Hydroxide/Mg Hydroxide (Mag-Al Plus) 30 ml PO Q4H PRN PRN Reason: Indigestion Apixaban (Eliquis) 2.5 mg PO BID [facility] Last Admin: 05/31/18 09:37 Dose: 2.5 mg Bisacodyl (Dulcolax) 10 mg RECTAL DAILY PRN PRN Reason: Constipation Celecoxib (Celebrex) 200 mg PO BID [facility] Last Admin: 05/31/18 09:36 Dose: 200 mg Diphenhydramine HCl (Benadryl) 25 - 50 mg PO Q6H PRN PRN Reason: Itching Docusate Sodium (Colace) 100 mg PO BID PRN PRN Reason: Constipation Famotidine (Pepcid) 40 mg IVPUSH ONARRIVE [facility] Last Admin: 05/30/18 10:45 Dose: 40 mg Famotidine (Pepcid) 40 mg PO DAILY [facility] Last Admin: 05/31/18 09:38 Dose: 40 mg Hydromorphone HCl (Dilaudid) 0.5 - 1 mg IVPUSH Q3H PRN PRN Reason: Pain Acetaminophen 1,000 mg/ Premix 100 mls @ 400 mls/hr IV ONARRIVE [facility] Last Infusion: 05/30/18 16:44 Dose: 400 mls/hr Admin: 05/30/18 16:29 Dose: 400 mls/hr Infusion: 05/30/18 11:00 Dose: 400 mls/hr Admin: 05/30/18 10:45 Dose: 400 mls/hr Clindamycin Phosphate 600 mg/ (Premix) 50 mls @ 100 mls/hr IV ONCALL [facility] Last Admin: 05/30/18 11:00 Dose: 100 mls/hr Ropivacaine 49.25 ml/Ketorolac Tromethamine 30 mg/Epinephrine HCl 0.5 mg/ Clonidine HCl 80 mcg/ Sodium Chloride 75 mls @ 50 mls/sec INJECT ASDIRECTED [facility] Lactated Ringer's (Ringers, Lactated) 1,000 mls @ 100 mls/hr IV ASDIRECTED [facility] Last Admin: 05/31/18 00:58 Dose: 100 mls/hr Infusion: 05/30/18 20:40 Dose: 100 mls/hr Admin: 05/30/18 10:40 Dose: 100 mls/hr Tranexamic Acid 2,000 mg/ (Sodium Chloride) 120 mls @ 600 mls/hr IV ASDIRECTED [facility] Ketorolac Tromethamine (Toradol) 15 mg IVPUSH ONARRIVE [facility] Last Admin: 05/30/18 10:45 Dose: 15 mg Montelukast Sodium (Singulair) 10 mg PO QPM [facility] Last Admin: 05/31/18 17:56 Dose: 10 mg Admin: 05/30/18 19:01 Dose: 10 mg Ondansetron HCl (Zofran) 4 mg IVPUSH Q6H PRN PRN Reason: Nausea/Vomiting Last Admin: 05/31/18 02:42 Dose: 4 mg Oxycodone/Acetaminophen (Percocet 325-5 Mg) 1 - 2 tab PO Q4H PRN PRN Reason: Pain Last Admin: 05/31/18 17:56 Dose: 2 tab Admin: 05/31/18 13:20 Dose: 2 tab Admin: 05/31/18 09:39 Dose: 2 tab Estradiol 1 Mg 1 each PO QPM [facility] Last Admin: 05/31/18 18:03 Dose: Admin: 05/30/18 19:09 Dose: Allerfex 10 Mg) 1 each PO QAM [facility] Last Admin: 05/31/18 10:08 Dose: Not Given Fluticasone Propionate Nasal [place] 16 Gm Bottle 0 each NASBOTH BID [facility] Last Admin: 05/31/18 09:00 Dose: 1 each Polyethylene Glycol (Miralax) 17 gm PO DAILY [facility] Last Admin: 05/31/18 09:35 Dose: 17 gm Scopolamine (Transderm-Scop) 1.5 mg TRDERM ONARRIVE [facility] Last Admin: 05/30/18 10:45 Dose: 1.5 mg Sodium Chloride (Saline Flush) 10 ml FLUSH ASDIRECTED PRN PRN Reason: Keep Vein Open Sodium Chloride (Saline Flush) 2.5 ml FLUSH ASDIRECTED PRN PRN Reason: Keep Vein Open - Plan Plan (Free Text/Narrative):: 1824 Patient seen and examined. Agree with above note. Still with pain in knee. Pain meds seem to be helping ~3H. IV pain meds given. Progressing with PT. Peroneal nerve palsy persists. hgb stable. Plan to continue PT. Will add tramadol for breakthrough pain. Possible discharge home tomorrow. rrk
[2018-05-31] MEDS: [UNRECOGNIZED DRUG - OTHER] PO SCH (10:08)
[2018-05-31] MEDS: Montelukast 10 MG Tab PO SCH (17:56)
[2018-05-31] MEDS ORDERED: traMADol 50 MG Tab PO PRN (18:24)
[2018-06-01] MEDS: Acetaminophen/oxyCODONE 325-5 MG Tab PO PRN ×3 (02:34→10:21)
[2018-06-01 07:46] VITALS: BP 131/63
[2018-06-01] MEDS: Apixaban 2.5 MG Tab PO SCH (08:55)
[2018-06-01] MEDS: Celecoxib 100 MG Cap PO SCH (08:55)
[2018-06-01] MEDS: Polyethylene Glycol 3350 Powder 17 GM Packet PO SCH (08:55)
[2018-06-01] MEDS: Famotidine 20 MG Tab PO SCH (10:02)
[2018-06-01] MEDS: [UNRECOGNIZED DRUG - OTHER] PO SCH (10:20)
--- NOTE | 2018-06-01 10:24 | PCM.SN ---
- Free Text/Narrative Note: d/ch summary #[id number]
[2018-06-01] MEDS: Fluticasone Propionate Nasal Spray 16 GM Bottle NASBOTH SCH (10:30)
--- NOTE | 2018-06-02 08:48 | DISCH ---
DATE OF DISCHARGE: 06/01/2018 PRIMARY CARE PHYSICIAN: Mookie PCP ADMITTING DIAGNOSIS: Degenerative joint disease, right knee, tricompartmental. OTHER MEDICAL DIAGNOSES: 1. Allergic rhinitis. 2. Hypercholesterolemia. 3. Diverticulosis. DISCHARGE DIAGNOSES: 1. Degenerative joint disease, right knee, tricompartmental. 2. Allergic rhinitis. 3. Hypercholesterolemia. 4. Diverticulosis. 5. Acute post hemorrhagic anemia. 6. Right peroneal nerve palsy. BRIEF HISTORY: Claritza is a 67-year-old female, who has had progressive complaints of right knee pain. She has tried and failed conservative treatment. At that time, surgical treatment was recommended. On May 30, 2018, the patient underwent a right total knee arthroplasty done by Dr. Yeimi Yu. This was done under spinal anesthesia with sedation. Estimated blood loss was 50 mL. Tourniquet time was 42 minutes. There were no known complications. Upon completion of the procedure, the patient was transferred to PACU and subsequently to Med/Surg for postoperative care. HOSPITAL COURSE: Postoperatively, the patient did well. Her pain was controlled with a combination of oral and IV pain medications. She received 2 doses of clindamycin postoperatively for a total of 24 hours of antibiotic coverage. Physical therapy followed her through her hospital stay. Her vital signs have been stable. She has been afebrile. Her hemoglobin on the morning of June 01 was 10.4. Postoperatively, she was found to have a right peroneal nerve palsy, but has been able to ambulate mindfully and clear her toes. She is ambulating well with a wheeled walker. Her pain is controlled with oral pain medications. She is tolerating oral intake. She feels comfortable with discharge to home. DISCHARGE MEDICATIONS: 1. Percocet 5/325 mg. 2. Celebrex 200 mg. 3. Colace 100 mg. 4. MiraLAX. 5. Aspirin 325 mg. DISCHARGE INSTRUCTIONS: For complete discharge instructions, please refer back to Dr. Yu's postoperative total knee arthroplasty patient instructions. For complete medication reconciliation, please refer back to the patient's EHR. Should she have questions or concerns prior to followup, she has been advised to contact the clinic. CHERIE DEVI /[id number]
== END 2018-06-01 12:00 | disposition home or self-care (01) | DRG 470 ==
LOC: MW.SDS 09:57 → MW.MS 13:30
PROVIDERS: ADMIT Orthopaedic Surgery; ATTEND Orthopaedic Surgery
PROC: 0SRC0J9 Replacement of Right Knee Joint with Synthetic Substitute, Cemented, Open Approach (ICD-10-PCS; principal; 2018-05-30)
DX: M17.11 Unilateral primary osteoarthritis, right knee (principal); D62 Acute posthemorrhagic anemia; M94.261 Chondromalacia, right knee; M54.9 Dorsalgia, unspecified; G89.29 Other chronic pain; G57.31 Lesion of lateral popliteal nerve, right lower limb; K57.90 Diverticulosis of intestine, part unspecified, without perforation or abscess without bleeding; E78.00 Pure hypercholesterolemia, unspecified; Z88.1 Allergy status to other antibiotic agents; Z88.5 Allergy status to narcotic agent; Z88.2 Allergy status to sulfonamides; Z91.018 Allergy to other foods; Z91.048 Other nonmedicinal substance allergy status; Z86.010 Personal history of colon polyps; Z90.710 Acquired absence of both cervix and uterus; Z79.899 Other long term (current) drug therapy
CPT/HCPCS: 27447; 36415; 73560; 86850; 86900; 86901; A9270; C1713; C1776 ×3; J0131; J0171 ×2; J0735; J1885 ×2; J2250 ×2; J2370; J2405; J2704 ×2; J2795; J3010; J3490 ×2; J7050; J7120; 85014; 85018; 97110-GP; 97161-GP

== ENCOUNTER 2018-06-04 15:00 | Emergency (ER) | payer MEDICARE, BC ==
--- NOTE | 2018-06-04 15:16 | EDM.PDOC ---
ED HPI GENERAL MEDICAL PROBLEM - General Chief Complaint: Lower Extremity Injury/Pain Stated Complaint: SWOLLEN KNEE Time Seen by Provider: 06/04/18 15:15 Source of Information: Reports: Patient - History of Present Illness INITIAL COMMENTS - FREE TEXT/NARRATIVE: HISTORY AND PHYSICAL: History of present illness: [Patient is postop for a right total knee replacement performed on May 30, she has been undergoing physical therapy and has had no complication she notes some bruising on her inner thigh that extends from the knee proximally, secondary to elevating the knee well at rest There is no redness warmth concerning the knee surgical dressing is in place, this is not removed that does not appear to be any drainage or exudates, she has full passive range of motion of the knee which is painless entire limb is neurovascularly intact We did have a discussion pertaining to the knee and I did draw lab however after my initial exam the patient eloped ] Review of systems: As per history of present illness and below otherwise all systems reviewed and negative. Past medical history: As per history of present illness and as reviewed below otherwise noncontributory. Surgical history: As per history of present illness and as reviewed below otherwise noncontributory. Social history: No reported history of drug or alcohol abuse. Family history: As per history of present illness and as reviewed below otherwise noncontributory. Physical exam: HEENT: Atraumatic, normocephalic, pupils reactive, negative for conjunctival pallor or scleral icterus, mucous membranes moist, throat clear, neck supple, nontender, trachea midline. Lungs: Clear to auscultation, breath sounds equal bilaterally, chest nontender. Heart: S1S2, regular, negative for clicks, rubs, or JVD. Abdomen: Soft, nondistended, nontender. Negative for masses or hepatosplenomegaly. Negative for costovertebral tenderness. Pelvis: Stable nontender. Genitourinary: Deferred. Rectal: Deferred. Extremities: Atraumatic, negative for cords or calf pain. Neurovascular unremarkable. Right knee as per history of present illness Neuro: Awake, alert, oriented. Cranial nerves II through XII unremarkable. Cerebellum unremarkable. Motor and sensory unremarkable throughout. Exam nonfocal. Diagnostics: [Hemoglobin and hematocrit now, comparison on file from surgery INR ] Therapeutics: [] Impression: [Status post total left knee Bruising] Definitive disposition and diagnosis as appropriate pending reevaluation and review of above. Right Leg Pain Score (Numeric/FACES): 6 - Related Data Allergies Allergy/AdvReac Type Severity Reaction Status Date / Time aspirin Allergy Nausea and Verified 06/04/18 15:30 Vomiting blueberry Allergy Nausea and Verified 06/04/18 15:30 Vomiting cephalexin [From Keflex] Allergy Nausea and Verified 06/04/18 15:30 Vomiting Cephalosporins Allergy Rash Verified 06/04/18 15:30 gluten Allergy Arrhythmias Verified 06/04/18 15:30 morphine Allergy Agitation Verified 06/04/18 15:30 soy Allergy Nausea and Verified 06/04/18 15:30 Vomiting Sulfa (Sulfonamide Allergy Rash Verified 06/04/18 15:30 Antibiotics) cantaloupe Allergy Nausea and Uncoded 05/26/18 17:06 Vomiting scents Allergy Shortness Uncoded 05/26/18 17:06 of Breath Home Meds: Home Meds Fluticasone Propionate [Flonase Allergy Relief] 1 spray NASBOTH BID 06/02/16 [ History] Montelukast Sodium [Singulair] 10 mg PO QPM 06/02/16 [History] Allerfex 10 mg PO QAM 05/26/18 [History] Estradiol 1 mg PO QPM 05/26/18 [History] Vitamin B Complex 1 cap PO DAILY 05/26/18 [History] Acetaminophen/oxyCODONE [Percocet 325-5 MG] 1 - 2 tab PO Q4H PRN #60 tablet [Rx] Apixaban [Eliquis] 2.5 mg PO BID #14 tablet 06/01/18 [Rx] Celecoxib [CeleBREX] 200 mg PO DAILY #30 cap 06/01/18 [Rx] Docusate Sodium [Colace] 100 mg PO BID PRN #60 cap 06/01/18 [Rx] Polyethylene Glycol 3350 [MiraLAX] 17 gm PO DAILY #30 packet 06/01/18 [Rx] Past Medical History HEENT History: Reports: Allergic Rhinitis Cardiovascular History: Reports: High Cholesterol Gastrointestinal History: Reports: Colon Polyp, Diverticulosis Genitourinary History: Reports: None 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: Musculoskeletal History: Reports: Back Pain, Chronic, Osteoarthritis Other Musculoskeletal History: chronic rt knee pain - Past Surgical History Head Surgeries/Procedures: Reports: None GI Surgical History: Reports: Colon, Colonoscopy, Colostomy, Other (See Below) Other GI Surgeries/Procedures: hx colonoscopy with polyp removal, colostomy for ruptured diverticulitis, and colostomy closure Female Surgical History: Reports: Breast Biopsy, Cervical Cryotherapy, Dilitation & Evacuation, Hysterectomy, Salpingo-Oophorectomy Other Female Surgeries/Procedures: hx D&C, laser ablation of cervix, total abd hysterectomy, and breast bx, rectocele rapair Review of Systems - Review of Systems Review Of Systems: See Below ED EXAM, GENERAL - Physical Exam Exam: See Below Course - Vital Signs Last Recorded V/S: Last Vital Signs Temp 98.4 F 06/04/18 15:17 Pulse 88 06/04/18 15:17 Resp 18 06/04/18 15:17 BP 155/56 H 06/04/18 15:17 Pulse Ox 98 06/04/18 15:17 - Orders/Labs/Meds Orders: Active Orders 24 hr Category Date Time Status OCCULT BLOOD DIAGNOSTIC [OP] Stat Lab 06/04/18 15:14 Ordered Labs: Laboratory Tests 06/04/18 06/04/18 Range/Units 15:22 15:22 Hgb 9.9 L (12.0-16.0) g/dL INR 0.90 Departure - Departure Time of Disposition: 16:17 Disposition: Eloped 07 Condition: Fair Clinical Impression: Bruising, S/P total knee arthroplasty - Discharge Information Referrals: PCP,None [Primary Care Provider] - Forms: ED Department Discharge - My Orders Last 24 Hours: My Active Orders 06/04/18 15:14 OCCULT BLOOD DIAGNOSTIC [OP] Stat - Assessment/Plan Last 24 Hours: My Active Orders 06/04/18 15:14 OCCULT BLOOD DIAGNOSTIC [OP] Stat
[2018-06-04 15:20] VITALS: BP 155/56
== END 2018-06-04 16:00 | disposition left against medical advice (07) ==
LOC: MW.ED 15:00
DX: S80.01XA Contusion of right knee, initial encounter (principal); X58.XXXA Exposure to other specified factors, initial encounter; Z88.8 Allergy status to other drugs, medicaments and biological substances; Z91.018 Allergy to other foods; Z88.2 Allergy status to sulfonamides; Z96.653 Presence of artificial knee joint, bilateral
CPT/HCPCS: 36415; 85018; 85610; 99283

== ENCOUNTER 2023-06-11 10:14 | Day surgery (SDC) | payer MEDICARE, OTHER ==
[2023-06-11] MEDS: Lactated Ringers 1,000 ML IV SCH (10:34)
[2023-06-11] MEDS ORDERED: Lidocaine 2% 5 ML SDV ONE (11:05)
[2023-06-11] MEDS ORDERED: Propofol 200 MG/20 ML SDV ONE (11:05)
[2023-06-11] MEDS ORDERED: Lactated Ringers 1,000 ML IV SCH (12:00)
[2023-06-11 12:08] VITALS: BP 140/65; PULSE 70
== END 2023-06-11 12:18 | disposition home or self-care (01) ==
LOC: MW.SDS 10:14
PROVIDERS: ATTEND Surgery
DX: Z12.11 Encounter for screening for malignant neoplasm of colon (principal); K57.30 Diverticulosis of large intestine without perforation or abscess without bleeding; Z86.010 Personal history of colon polyps; Z80.0 Family history of malignant neoplasm of digestive organs; Z79.899 Other long term (current) drug therapy; Z88.2 Allergy status to sulfonamides; Z88.6 Allergy status to analgesic agent; Z88.5 Allergy status to narcotic agent
CPT/HCPCS: G0105; J2704; J7120; 00812; 45378; 99100; J3490

== ENCOUNTER 2024-06-09 18:22 | Emergency (ER) | payer MEDICARE, OTHER ==
[2024-06-09 19:32] LABS: BASOPHILS ABSOLUTE AUTO 0.05 K/uL (0.00-0.20); BASOPHILS PERCENT AUTO 0.8 % (0.0-1.0); EOSINOPHILS ABSOLUTE AUTO 0.12 K/uL (0.00-0.45); EOSINOPHILS PERCENT AUTO 1.9 % (0.0-6.0); HEMATOCRIT 38.5 % (37.0-47.0); HEMOGLOBIN 12.9 g/dL (12.0-16.0); IMMATURE GRAN ABSOLUTE AUTO 0.01 K/uL (0.00-0.05); IMMATURE GRAN PERCENT AUTO 0.2 % (0.0-0.4); LYMPHOCYTES ABSOLUTE AUTO 1.66 K/uL (1.00-4.80); LYMPHOCYTES PERCENT AUTO 26.1 % (24.0-44.0); MEAN CORPUSCULAR HEMOGLOBIN 31.3 pg (28.0-32.0); MEAN CORPUSCULAR HGB CONC 33.5 g/dL (32.0-36.0); MEAN CORPUSCULAR VOLUME 93.4 fL (83.0-99.0); MEAN PLATELET VOLUME 10.6 fL (9.4-12.3); MONOCYTES ABSOLUTE AUTO 0.93 K/uL (0.00-0.80); MONOCYTES PERCENT AUTO 14.6 % (0.0-8.0); NEUTROPHILS ABSOLUTE AUTO 3.58 K/uL (1.80-7.70); NEUTROPHILS PERCENT AUTO 56.4 % (41.0-71.0); PLATELET COUNT,PLT 253 K/uL (150-400); RED BLOOD CELL COUNT 4.12 M/uL (4.10-5.30); WHITE BLOOD CELL COUNT,WBC 6.35 K/uL (3.9-11.3)
[2024-06-09 20:04] LABS: A/G RATIO 0.9 (0.9-1.6); ALBUMIN 3.7 g/dL (3.4-5.0); BILIRUBIN TOTAL 0.2 mg/dL (0.2-1.0); CALCIUM 9.4 mg/dL (8.5-10.1); CARBON DIOXIDE,CO2 28.6 mmol/L (21.0-32.0); CREATININE 0.9 mg/dL (0.6-1.0); EST CRCL DRUG DOSING (CG) 48.6 mL/min; POTASSIUM,K 4.2 mmol/L (3.5-5.1); PROTEIN TOTAL,TP 7.6 g/dL (6.4-8.2)
[2024-06-09] MEDS: Aspirin 81 MG Tab.Chew PO ONE (21:20)
[2024-06-09] MEDS: Famotidine 20 MG Tab PO ONE (21:20)
[2024-06-09] MEDS: Alum Hydrox/Mag Hydrox/Simeth 15 ML, Lidocaine 2% 5 ML PO ONE (21:20)
[2024-06-09 22:34] VITALS: BP 165/87; PULSE 74
== END 2024-06-09 22:55 | disposition home or self-care (01) ==
LOC: MW.ED 18:22
DX: R07.89 Other chest pain (principal); Z88.6 Allergy status to analgesic agent; Z91.018 Allergy to other foods; Z88.8 Allergy status to other drugs, medicaments and biological substances; Z88.2 Allergy status to sulfonamides; Z79.899 Other long term (current) drug therapy
CPT/HCPCS: 36415; 71046; 80053; 83690; 84484; 85025; 93005; 99285; A9270; 93010; 99284